=== PATIENT | male | born 1975 | race Caucasian/White ===

== ENCOUNTER 2021-12-31 23:23 | Emergency (ER) | payer MEDICAID ==
[~2021-12-31] VITALS: Ht 177.8 cm; Wt 113.4 kg
--- NOTE | 2021-12-31 23:42 | NUR ---
Patient left without being seen.
--- NOTE | 2021-12-31 23:58 | NUR ---
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
--- NOTE | 2022-01-01 | NUR ---
SEEN BY DR RIVAS
--- NOTE | 2022-01-01 00:01 | NUR ---
MEDICALLY CLEARED BY DR MANLEY
--- NOTE | 2022-01-01 00:02 | NUR ---
DISCHARGED BY DR MANLEY
[2022-01-01 01:18] VITALS: BP_SYST 138
== END 2022-01-01 | disposition home or self-care (01) ==
LOC: SED 23:23
DX: Z02.89 Encounter for other administrative examinations (principal); F17.200 Nicotine dependence, unspecified, uncomplicated
CPT/HCPCS: 99283